=== PATIENT | female | born 2000 ===

== ENCOUNTER 2023-07-15 08:22 | Outpatient (OUT) | payer OTHER, SELFPAY ==
--- NOTE | 2023-07-15 08:26 | US_ITS ---
The [address] [address] Patient Name: CRISTOPHER VU MRN: [id number] date: 2000 Sex: F Assigned Patient Location: [facility] Current Patient Location: [facility] Accession/Order Number: [id number] Exam Date: 07/15/2023 08:26 Report Date: 07/15/2023 09:26 At the request of: JEFE SALDANA Procedure: US pelvis EXAM: US pelvis HISTORY: Amenorrhea COMPARISON: None. TECHNIQUE: Transabdominal scanning was performed FINDINGS: Scanning of the pelvis demonstrates an anteverted uterus measuring 8.4 x 2.4 x 3.7 cm. Endometrial complex measures 4 mm. Right ovary measures 2 x 1.5 x 2.7 cm. Color-flow is noted. No masses are noted. Left ovary measures 2 x 1.5 x 2.7 cm. Color-flow is noted. No masses are noted. No fluid is noted in the cul-de-sac. US/US pelvis IMPRESSION: 1. Normal-appearing uterus and endometrial complex. 2. Normal-appearing ovaries. Electronically authenticated by: XAVI BIRD Date: 07/15/2023 09:26
== END 2023-07-15 08:23 | disposition home or self-care (01) ==
LOC: NOMS 08:23
PROVIDERS: PCP Family Medicine; Visit Provider Obstetrics & Gynecology
DX: N91.2 Amenorrhea, unspecified (principal)
CPT/HCPCS: 76856